=== PATIENT | female | born 1940 | race Caucasian/White ===

== ENCOUNTER 2018-06-11 14:09 | Emergency (ER) | payer OTHER ==
[~2018-06-11] VITALS: Ht 170.2 cm; Wt 60.0 kg
[2018-06-11] MEDS ORDERED: HYDROmorphONE 0.5 MG/0.5 ML SYG IM STA (14:26)
[2018-06-11] MEDS ORDERED: ONDANSETRON (ODT) 4 MG TAB ODT STA (14:26)
[2018-06-11 14:29] VITALS: Ht 170.2 cm; Wt 60.0 kg
[2018-06-11] MEDS ORDERED: DIGO125T93 PO (15:00)
[2018-06-11] MEDS ORDERED: PRAV20TA63 PO (15:01)
[2018-06-11] MEDS ORDERED: QUET25TA33 PO (15:01)
[2018-06-11] MEDS ORDERED: BUPR150T18 PO (15:02)
[2018-06-11] MEDS ORDERED: MEMA5TAB PO (15:03)
[2018-06-11] MEDS ORDERED: METO-448 PO (15:04)
[2018-06-11] MEDS ORDERED: GABA100C14 PO (15:05)
[2018-06-11] MEDS ORDERED: ALEN70TA5 PO (15:05)
[2018-06-11] MEDS ORDERED: CALC1TAB79 PO (15:06)
[2018-06-11] MEDS ORDERED: MUPI15CR9 TOP (15:09)
[2018-06-11] MEDS ORDERED: TRIA15CR55 TOP (15:09)
[2018-06-11] MEDS ORDERED: DIPH50CA30 PO (15:10)
[2018-06-11] MEDS ORDERED: WARF5TAB PO (15:27)
--- NOTE | 2018-06-11 16:15 | ERD ---
ER Documentation Chief Complaint Chief Complaint Mid-lower back pain since HS no traumatic injury has hx of chronic back natalia HPI This is a 78-year-old female is here for low back pain. She said that she had a fall about 3 weeks ago and has had pain since that time and then last night she had a slip and fall and has new low back pain. Pain is sharp worse with movement better with rest no radiation down the legs no loss of bowel or bladder no abdominal pain neck pain or loss of consciousness no syncope. ROS All systems reviewed and are negative except as per history of present illness. Medications Home Meds Reported Medications Warfarin Sodium* (Coumadin*) 5 Mg Tablet, 5 MG PO DAILY, TAB 06/11/18 Diphenhydramine Hcl (BANOPHEN) 50 Mg Capsule, 50 MG PO Q6 PRN for ITCHING, CAP 06/11/18 Triamcinolone Acetonide* (Kenalog*) 0.1%-15GM Cr, 1 APPLIC TOP BID, #1 TUB 06/11/18 Mupirocin Calcium* (Mupirocin*) 2% - 15 Gram Cream..g., 1 APPLIC TOP BID, #1 TUB APPLY TO AFFECTED AREA 06/11/18 Calcium Carbonate/Vitamin D3 (Oysco 500+D Tablet) 1 Each Tablet, 1 EACH PO DAILY, TAB 06/11/18 Alendronate Sodium* (Fosamax*) 70 Mg Tablet, 70 MG PO Q7D, #4 TAB 06/11/18 Gabapentin* (Gabapentin*) 100 Mg Capsule, 100 MG PO TID, #90 CAP 06/11/18 Metoprolol Tartrate* (Lopressor*) 25 Mg Tab, 25 MG PO BID, #60 TAB 06/11/18 Memantine* (Namenda*) 5 Mg Tablet, 5 MG PO BID, #60 TAB 06/11/18 Bupropion Hcl* (Bupropion Hcl SR*) 150 Mg Tablet.er, 150 MG PO BID, TAB.SA 06/11/18 Quetiapine Fumarate* (Quetiapine Fumarate*) 25 Mg Tablet, 12.5 MG PO HS, TAB 06/11/18 Pravastatin Sodium* (Pravastatin Sodium*) 20 Mg Tablet, 20 MG PO HS, TAB 06/11/18 Digoxin* (Lanoxin*) 0.125 Mg Tablet, 0.125 MG PO DAILY, TAB 06/11/18 Allergies Allergies: Coded Allergies: Penicillins (Verified Allergy, Unknown, 06/11/18) strawberry (Verified Allergy, Unknown, 06/11/18) PMhx/Soc History of Surgery: Yes (Mitral valve repair) Hx Cardiac Disorders: Yes (A-fib, ) Hx Psychiatric Problems: Yes (depression, ) Hx Alcohol Use: No Hx Substance Use: No Hx Tobacco Use: No Smoking Status: Never smoker FmHx Family History: No coronary disease Physical Exam Vitals Vital Signs Date Temp Pulse Resp B/P (MAP) Pulse Ox O2 O2 Flow FiO2 Time Delivery Rate 06/11/18 98.3 88 20 107/96 94 Room Air 16:26 (100) 06/11/18 98.3 74 24 141/80 94 14:29 (100) Physical Exam Const: Well-developed, well-nourished Head: Atraumatic, normocephalic Eyes: Normal Conjunctiva, PERRLA, EOMI, normal sclera, no nystagmus ENT: Normal External Ears, Nose and Mouth, moist mucus membranes. Neck: Full range of motion. No meningismus, no lymphadenopathy. Resp: Clear to auscultation bilaterally, no wheezing, rhonchi, rales Cardio: Regular rate and rhythm, no murmurs, S1 S2 present Abd: Soft, non tender x 4, non distended. Normal bowel sounds, no guarding or rebound, no pulsitile abdominal masses or bruits Skin: No petechiae or rashes, no ecchymosis , no maculopapular rash Back: Lower thoracic and upper lumbar midline tenderness Ext: No cyanosis, or edema, FROM x 4, normal inspection, neurovascularly intact x 4 Neur: Awake and alert, STR 5/5 x 4, sensation intact x 4, no focal findings, cerebellum intact Psych: Normal Mood and Affect Results 24 hrs Current Medications Medications Dose Sig/Sharan Start Time Status Last (Trade) Ordered Route PRN Stop Time Admin Dose Reason Admin 1 mg ONCE STAT 06/11/18 DC 06/11/18 Hydromorphone IM 14:26 06/11/18 14:39 HCl 14:28 (Dilaudid) Ondansetron 4 mg ONCE STAT 06/11/18 DC 06/11/18 HCl (Zofran ODT 14:26 06/11/18 14:39 Odt) 14:28 Sodium 1,000 ml @ Q1H STAT 06/11/18 DC 06/11/18 Chloride 1,000 mls/hr IV 16:24 06/11/18 16:28 17:23 Procedures/MDM Patient: CLEO BIGGS : 1940 Age: 78 Sex: F MR #: [id number] DOS: 06/11/18 1426 Ordering MD: DONNIE ALLEN DO Location: E/R Room/Bed: PROCEDURE: CT LUMBAR SPINE WITHOUT CONTRAST CLINICAL INDICATION: Trauma. Back pain. TECHNIQUE: CT scan of the lumbar spine was performed on a multi -slice scanner. No IV contrast was administered. Coronal and sagittal reformatted images were obtained from the axial source images. The total exam DLP equals 280.26 mGy-cm. The CDTI volume was 9.90 mGy. One or more of the following dose reduction techniques were used: - Automated exposure control. - Adjustment of the mA and/or kV according to patient size . - Use of iterative reconstruction technique. Images were reviewed on a high-resolution PACS workstation. COMPARISON: None. FINDINGS: 5 non-rib bearing lumbar type vertebral bodies. Mild left convex curvature of the lumbar spine. Lumbar lordosis is maintained. Mild osteopenia. Compression fracture of the T12 vertebral body with approximately 50% height loss and 3 mm retropulsion of the superior endplate. Compression fracture of the L1 vertebral body with approximately 15% height loss. Visualized portions of the SI joints demonstrate left greater than right degenerative change with focal pneumocele in the left iliac bone. Mild atrophy and fatty infiltration of the lower lumbar paravertebral musculature. Atelectasis/scarring in the lung bases. Small hiatal hernia. Atherosclerotic calcification of the aorta. Cardiomegaly and partially imaged pacemaker wires. Likely duodenal diverticulum. Scattered colonic diverticula. Multilevel spinous process hypertrophy. Findings at specific disc levels: T11-T12: Widening of the disc due to fracture. Mild facet hypertrophy. Superior endplate retropulsion of T12 vertebral body by approximately 3 mm and disc bulge without significant spinal canal stenosis or neural foraminal narrowing. T12-L1: Minimal widening of the disc due to fracture. Anterior osteophyte formation. Mild facet hypertrophy. Mineralized disc osteophyte complex without significant spinal canal stenosis or neural foraminal narrowing. L1-L2: Moderate to severe disc height loss posteriorly. Vacuum phenomenon. Anterior osteophyte formation. Mild facet hypertrophy. Disc osteophyte complex with mild to moderate right neural foraminal narrowing. No significant spinal canal stenosis. L2-L3: Mild disc height loss and Schmorl's node formation. Anterior osteophyte formation. Minimal vacuum phenomenon. Mild facet hypertrophy. Broad-based disc bulge with mild to moderate left and mild right neural foraminal narrowing. No definite spinal canal stenosis. L3-L4: Disc height is maintained. Schmorl's node formation. Anterior osteophyte formation. Mild facet hypertrophy and ligamentum flavum infolding. Broad-based disc bulge with mild bilateral neural foraminal narrowing. No definite spinal canal stenosis. L4-L5: Mild disc height loss posteriorly. Anterior osteophyte formation. Schmorl's node formation. Vacuum phenomenon. Mild facet hypertrophy. Broad-based disc bulge effacing the ventral thecal sac and subarticular recesses without definite spinal canal stenosis. Mild bilateral neural foraminal narrowing. L5-S1: Moderate to severe disc height loss. Anterior osteophyte formation. Moderate facet hypertrophy. Mineralized central disc protrusion measuring approximately 5 mm effacing the ventral thecal sac and possibly contacting the traversing S1 nerve roots. Mild spinal canal stenosis. Focal moderate right and borderline mild left neural foraminal narrowing. IMPRESSION: 1. Mild osteopenia. 2. Compression fracture of the T12 vertebral body with approximate 50% height loss and 3 mm retropulsion of the superior endplate as well as compression fracture of the L1 vertebral body with approximately 15% height loss, may be a acute. Consider MRI for further evaluation. 3. Multilevel degenerative disc and facet disease as well as levoscoliosis. 4. Peripherally mineralized central disc protrusion 5 S1 with mild spinal canal stenosis and subarticular recess narrowing in close approximation to the traversing S1 nerve roots, focal moderate right and borderline mild left neural foraminal narrowing. Mild bilateral neural foraminal narrowing at L4-L5. Additional levels as above. 5. Incidental findings as above. RPTAT: AA R-Vrand Ghazikhanian, Physician Date Time Electronically viewed and signed by Virgie Lucio Physician on 06/11/2018 15:19 RG/ CC: DONNIE ALLEN DO [id number] Patient has evidence of new and old compression fractures to the left lumbar and thoracic spine. Her pain is controlled she is able to sit up in bed stand. Will discharge home with pain meds and bed rest and follow-up with orthopedics Departure Diagnosis: Primary Impression: Compression fracture Condition: Stable DONNIE ALLEN DO June 11, 2018 16:15
[2018-06-11] MEDS ORDERED: SOD CHLORIDE 0.9% 1,000 ML IV STA (16:24)
[2018-06-11] MEDS ORDERED: HYDR-3980 PO (18:00)
[2018-06-11] MEDS ORDERED: MECLIZINE 12.5 MG TAB PO ONE (18:30)
[2018-06-11] MEDS ORDERED: MECL12.574 PO (19:41)
[2018-06-11 21:08] VITALS: BP 135/68; PULSE 68; RESP 20
== END 2018-06-11 21:09 | disposition home or self-care (01) ==
LOC: E/R 14:09
DX: S22.080A Wedge compression fracture of T11-T12 vertebra, initial encounter for closed fracture (principal); S32.010A Wedge compression fracture of first lumbar vertebra, initial encounter for closed fracture; W01.0XXA Fall on same level from slipping, tripping and stumbling without subsequent striking against object, initial encounter; Y92.9 Unspecified place or not applicable
CPT/HCPCS: 70450; 72131; 96372; 99285; J1170; J7030